=== PATIENT | male | born 2000 | race Caucasian/White ===

== ENCOUNTER 2021-03-25 09:00 | Emergency (ER) | payer SELFPAY ==
[2021-03-25 09:05] VITALS: BP 140/87; PULSE 80; RESP 17; TEMP 36.8; O2SAT 100; BMI 20.7
--- NOTE | 2021-03-25 10:06 | HMH.EDUTC ---
[facility] [place] Clinical Impression: Laceration Disposition: Home, Self-Care Condition on Discharge: Good Instructions: Laceration Repair, DI for Laceration Repair, DI for Laceration Repair -- Simple Additional Instructions: Suture instructions: You have required stitches today. Please read the following instructions so you know how to care for them: 1. Keep wound area dry for the first 24 hours. 2 May clean gently with mild soap and water, after 48 hours to prevent crusting over suture knots. 3. You may shower if your provider gives permission but do not take a bath until the skin is healed.. 4. Never leave a wet dressing or Band-Aid on your stitches as this allows bacteria to reach the area and may cause infection. Band-aids can cause the wound to sweat and not recommended to wear for long periods of time Watch for signs of infection: Increasing redness, tenderness or warmth around the suture site Unusual swelling around the site Appearance of pus around each suture or any red streaks Fever If you develop any of the above signs or symptoms of infection, Follow up with Family Physician immediately 5. Suture removal in _10-14___days 6. Return to [facility] or follow up with family doctor for removal. This can be done by any medical provider during regular hours on Wednesday through Wednesday, by appointment. Prescriptions: Amoxicillin/Potassium Clav [Augmentin 500mg tab] 500 mg PO TID #21 tab Transmission Status: Pending to [id number] Referrals: Sandra Jacobsen MD [Primary Care Provider] - As needed Time of Disposition: 10:14 Medical Decision Making - Charlie Inquiry Pt receiving controlled substance: No Charlie was queried for this patient: No Vital Signs: 03/25/21 09:05 Temperature 98.2 F Temperature Source Oral Pulse Rate [Right Brachial] 80 Respiratory Rate 17 Blood Pressure [Right Arm] 140/87 Blood Pressure Mean [Right Arm] 104 Blood Pressure Source [Right Arm] Automatic Cuff Blood Pressure Position [Right Arm] Sitting 02 Sat by Pulse Oximetry 100 Oxygen Delivery Method Room Air Orders (Tests/Meds): ED MEDICATIONS Discontinued Medications Generic Name Dose Route Start Last Admin Trade Name Freq PRN Reason Stop Dose Admin Tetanus/Reduced Diphtheria/Acell Pertussis 0.5 ml 03/25/21 09:23 03/25/21 09:28 Tet/Diphth/Pert-Adult 0.5ml Syringe IM 03/25/21 09:24 0.5 ml .ONCE ONE Administration Medical Decision Narrative: Patient educated to not wait on lacerations and to watch for signs of infection due to location and risk of infection elected to close the laceration wound was irrigated well and cleaned well prior to closure wound edges approximated well [facility] [place] - General Stated complaint: laceration Lt Pinkie finger Time Seen by Provider: 03/25/21 09:30 Mode of Arrival: Ambulatory Source of Information: Patient Limitations: No Limitations Description of Symptoms (Recalled from Triage Doc. by RN): LACERATION TO LEFT 5TH FINGER. PATIENT REPORTS HE CUT IT ON DRY WALL APPROX 1700 YESTERDAY. 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
[2021-03-25 10:17] VITALS: BP 140/87; PULSE 80; RESP 17; TEMP 36.8; O2SAT 100
== END 2021-03-25 10:20 | disposition home or self-care (01) ==
PROVIDERS: Emergency Provider Nurse Practitioner; PCP Family Medicine
DX: S61.217A Laceration without foreign body of left little finger without damage to nail, initial encounter (principal); W26.0XXA Contact with knife, initial encounter; Y92.019 Unspecified place in single-family (private) house as the place of occurrence of the external cause
CPT/HCPCS: 12001; 90471; 90715; 99202; G0463

== ENCOUNTER 2022-03-24 17:31 | Emergency (ER) | payer BC, SELFPAY ==
--- NOTE | 2022-03-24 17:42 | XR_ITS ---
PROCEDURE INFORMATION: Exam: XR Right Hand Exam date and time: 03/24/22 05:44 PM Age: 21 years old Clinical indication: Pain; Finger(s); Right; Additional info: Smashed index finger with sledge hammer TECHNIQUE: Imaging protocol: Radiologic exam of the Right hand. Views: 3 or more views. COMPARISON: No relevant prior studies available. FINDINGS: Bones/joints: Normal. Soft tissues: Normal. IMPRESSION: No acute findings.
[2022-03-24 18:00] VITALS: BP 114/80; PULSE 82; RESP 19; TEMP 36.7; O2SAT 98; BMI 18.6
--- NOTE | 2022-03-24 18:32 | HMH.EDUTC ---
[facility] [place] Disposition Clinical Impression: Finger contusion Qualifiers: Encounter type: initial encounter Finger: index finger Damage to nail status: without damage Laterality: right Qualified Code(s): S60.021A - Contusion of right index finger without damage to nail, initial encounter Disposition: Home, Self-Care Condition on Discharge: Good Instructions: How To Perform RICE (Rest, Ice, Compress, Elevate), DI for Abrasion Additional Instructions: *RICE, Rest the extremity, Ice 15-20 minutes 3-4 times daily, Compress- wear the oscar wrap as discussed as much as possible to help reduce swelling and pain, Elevate the extremity when at rest *Finger splint is for support and help control swelling, use it except in the shower. Be sure that is not to tight but not to loose either *Elevate when resting Clean abrasion with antibacterial soap and water and apply neosporin *Ibuprofen as directed on package every 6-8 hours as needed for pain an inflammation. If need something more can take Tylenol in between doses of Ibuprofen to help Immediately follow up with your family doctor for new or worsening of symptoms, or no noticeable improvement over the next 3-5 days Referrals: Sandra Jacobsen MD [Primary Care Provider] - As needed Time of Disposition: 18:44 Medical Decision Making - Charlie Inquiry Pt receiving controlled substance: No Charlie was queried for this patient: No Vital Signs: 03/24/22 18:00 Temperature 98.0 F Temperature Source Oral Pulse Rate [Right Brachial] 82 Respiratory Rate 19 Blood Pressure [Right Arm] 114/80 Blood Pressure Mean [Right Arm] 91 Blood Pressure Source [Right Arm] Automatic Cuff Blood Pressure Position [Right Arm] Sitting 02 Sat by Pulse Oximetry 98 Oxygen Delivery Method Room Air - Radiology Data #1 Image(s): Hand Image Reviewed: Yes I have reviewed radiologist's interpretation IMPRESSION: No acute findings. [facility] [place] HPI - General Stated complaint: [id number] R index finger injury Time Seen by Provider: 03/24/22 18:32 Mode of Arrival: Ambulatory Source of Information: Patient Limitations: No Limitations Description of Symptoms (Recalled from Triage Doc. by RN): PATIENT C/O INJURY TO RIGHT INDEX FINGER AFTER HITTING IT WITH A SLEDGHAMMER TODAY HEENT Symptoms (Recalled from RN notes): No Resp Symptoms (Recalled from RN notes): No Skin Symptoms (Recalled from RN notes): No MS Symptoms (Recalled from RN notes): Yes Functional Status (Recalled from RN notes): WNL - History of Present Illness Provider Complaint: Patient states that he was using a sledgehammer earlier pounding a nail when he missed the nail and hit his right index finger States that he noticed a scratch on his finger and it started swelling States that now he is having swelling and bruising and pain when he bends the finger so he came in to get it checked out - Related Data Allergies Allergy/AdvReac Type Severity Reaction Status Date / Time No Known Allergies Allergy Verified 12/06/19 13:03 - Worker's Comp Is this a Worker's Comp case?: No [facility] History - Hepatitis A Screen Attestation statement:: This patient has been screened for Hepatitis A risk factors. I have reviewed the patient's past medical history: Yes Medical History: Denies:: Diabetes Mellitus Type 1, Diabetes Mellitus Type 2, MRSA Laterality Cases: Bilateral: Myringotomy (Ear Tubes), Tonsillectomy Other Surgeries: Yes: No Previous Surgery Amputation: No Fractures: No - Social History Smoking Status: Never smoker Alcohol Intake: never Substance Use Type: denies use Occupational Status: other Housing: house Household Members: family Family Hx:: Hypertension, Cancer, Diabetes ROS Obtained: Yes All systems reviewed & no additional complaints, Yes Systems reviewed as appropriate & no additional complaints - ENT Ears, Nose, Mouth, and Throat: Reports system reviewed and no additional complaints, except as docu - Cardiovascular Cardiovascular:
[2022-03-24 18:52] VITALS: BP 114/80; PULSE 82; RESP 19; TEMP 36.7; O2SAT 98
== END 2022-03-24 18:53 | disposition home or self-care (01) ==
PROVIDERS: Emergency Provider Nurse Practitioner; PCP Family Medicine
DX: S60.021A Contusion of right index finger without damage to nail, initial encounter (principal); W27.0XXA Contact with workbench tool, initial encounter; Y93.9 Activity, unspecified; Y99.9 Unspecified external cause status; Y92.9 Unspecified place or not applicable
CPT/HCPCS: 29130; 73130; 99212; G0463